=== PATIENT | male | born 1955 | race Caucasian/White ===

== ENCOUNTER 2024-05-08 16:12 | Inpatient (IN) | payer OTHER ==
[2024-05-08 17:45] VITALS: BMI 29.2
[2024-05-08] MEDS ORDERED: POLYETHYLENE GLYCOL (HEALTHYLAX) 3350 17 GM PACKET PO PRN (20:45)
[2024-05-08] MEDS ORDERED: IBUPROFEN 400 MG TABLET (FP) PO PRN (20:45)
[2024-05-08] MEDS ORDERED: MAG HYDROX/AL HYDROX/SIMETH 30 ML UNIT-DOSE CUP PO PRN (20:45)
[2024-05-08] MEDS ORDERED: BENZOCAINE/MENTHOL (CHLORASEPTIC ) LOZENGE MM PRN (20:45)
[2024-05-08] MEDS ORDERED: IBUPROFEN 600 MG TABLET (FP) PO PRN (20:45)
[2024-05-08] MEDS ORDERED: ACETAMINOPHEN 325 MG TABLET (FP) PO PRN (20:45)
[2024-05-08] MEDS ORDERED: BENZONATATE 200 MG CAPSULE PO PRN (20:45)
[2024-05-08] MEDS ORDERED: P-EPHED 60MG/TRIPROLIDI 2.5MG TABLET PO PRN (20:45)
[2024-05-08] MEDS ORDERED: MAGNESIUM HYDROX 2400MG/30ML ORAL SUSPENSION 30 ML CUP PO PRN (20:45)
[2024-05-08] MEDS ORDERED: BISMUTH SUBSALICYLATE 524 MG/30 ML PO PRN (20:45)
[2024-05-08] MEDS ORDERED: LOPERAMIDE HCL 2 MG CAPSULE PO PRN (20:45)
[2024-05-08] MEDS ORDERED: ONDANSETRON *ODT* 4 MG TABLET SL PRN (20:45)
[2024-05-08] MEDS ORDERED: guaiFENesin 600 MG TABLET.ER (FP) PO PRN (20:45)
[2024-05-08] MEDS ORDERED: APIXABAN 5 MG TABLET PO SCH (22:00)
[2024-05-08] MEDS: MELATONIN 5 MG TABLETS PO SCH (22:30)
[2024-05-08] MEDS: THIAMINE 100 MG TABLET PO SCH (22:30)
[2024-05-08] MEDS: APIXABAN 5 MG TABLET PO SCH (22:30)
[2024-05-08] MEDS: diazePAM 5 MG TABLET PO SCH (22:30)
[2024-05-09] MEDS: CEPHALEXIN MONOHYDRATE 500 MG CAPSULE (UD) PO SCH (00:07)
[2024-05-09] MEDS: OXcarbazepine 150 MG TABLET (UD) PO SCH (00:07)
[2024-05-09] MEDS: PRENATAL VITAMINS W/ FOLIC ACID TABLET (FP) PO SCH (09:52)
[2024-05-09] MEDS: LOSARTAN 50MG/HCTZ 12.5MG 1 TAB PO SCH (09:53)
[2024-05-09] MEDS: FOLIC ACID 1 MG TABLET (FP) PO SCH (09:55)
[2024-05-09] MEDS: FLUoxetine HCL 20 MG CAPSULE PO SCH (11:09)
[2024-05-10] MEDS: diazePAM 5 MG TABLET PO SCH (05:27)
[2024-05-10] MEDS: LOSARTAN POTASSIUM 50 MG TABLET PO SCH (11:01)
[2024-05-10] MEDS: HYDROCHLOROTHIAZIDE 12.5 MG CAPSULE (FP) PO SCH (11:01)
[2024-05-10] MEDS: diazePAM 5 MG TABLET PO PRN (22:22)
[2024-05-11] MEDS: diazePAM 5 MG TABLET PO ONE (05:33)
[2024-05-11 15:44] VITALS: RESP 18
[2024-05-11] MEDS: hydrOXYzine PAMOATE 25 MG CAPSULE (FP) PO PRN (21:19)
[2024-05-12 06:53] VITALS: TEMP 97
[2024-05-12 09:13] VITALS: BP 117/61; PULSE 78
[2024-05-12 12:18] LABS: HEMATOCRIT 33.8 % (35.4-49); MCHC 35.5 g/dl (32.0-35.9); MEAN CELL VOLUME 95.7 fl (80-96); MEAN PLT VOLUME 8.4 fl (7.5-11.1); PLATELET COUNT 215 10^3/uL (134-434); RBC 3.53 M/mm3 (4.00-5.60); RDW 13.2 % (11.9-15.9); WHITE BLOOD COUNT 4.2 K/mm3 (4.0-10.0)
[2024-05-12 12:49] LABS: POTASSIUM 4.4 mmol/L (3.5-5.1)
[2024-05-12 12:55] LABS: ALBUMIN 3.4 g/dl (3.4-5.0); BLOOD UREA NITROGEN 20.6 mg/dL (7-18); CALCIUM 8.9 mg/dL (8.5-10.1)
[2024-05-12 12:58] LABS: CREATININE 0.8 mg/dL (0.55-1.3)
[2024-05-12 13:00] LABS: BILIRUBIN,TOTAL 0.2 mg/dL (0.2-1); TOT PROT 6.1 g/dl (6.4-8.2)
[2024-05-12] MEDS ORDERED: SUVOREXANT 10 MG TABLET PO PRN (20:00)
== END 2024-05-12 17:35 | disposition home or self-care (01) | DRG 895 ==
LOC: YASAS 16:12 → Y6N 21:21 → Y5N 05-11 15:33
PROVIDERS: ADMIT Allergy & Immunology; ATTEND Psychiatry & Neurology Pain Medicine
PROC: HZ2ZZZZ Detoxification Services for Substance Abuse Treatment (ICD-10-PCS; 2024-05-08)
PROC: HZ42ZZZ Group Counseling for Substance Abuse Treatment, Cognitive-Behavioral (ICD-10-PCS; principal; 2024-05-11)
DX: F10.20 Alcohol dependence, uncomplicated (principal); F13.20 Sedative, hypnotic or anxiolytic dependence, uncomplicated; F19.282 Other psychoactive substance dependence with psychoactive substance-induced sleep disorder; F19.24 Other psychoactive substance dependence with psychoactive substance-induced mood disorder; F32.A Depression, unspecified; G40.909 Epilepsy, unspecified, not intractable, without status epilepticus; I10 Essential (primary) hypertension; Z86.711 Personal history of pulmonary embolism; Z79.01 Long term (current) use of anticoagulants; Z91.81 History of falling
CPT/HCPCS: 36415; 71046-TC-FY; 80053; 80305; 85027; 86780; 87811; 93005; 93010